=== PATIENT | female | born 1965 | race Caucasian/White ===

== ENCOUNTER → 2016-05-22 | Outpatient (CLI) | payer OTHER ==
[~2016-05-22] MED LIST: (NONE)1 TAB PO; ADVAIR 250-501 EACH INH; ALBUTEROL17 GM INH; ALPRAZOLAM PO; AMOXICILLIN PO; ANUSOL-HC CREAM30 G1 EXT; ATARAX PO; ATIVAN0.5 M1 PO; BENTYL10 MG DOB; BENZONATATE PO; BUSPAR PO; CELEXA; CIPRO250 MG PO; COMBIVENT INH14.7 GM INH; COMBIVENT U/D3 M2 INH; COMBIVENT U/D3 ML INH; COMBIVENT14.7 GM INH; CYMBALTA PO; CYMBALTA30 M1; DICLOFENAC PO; DIFLUNISAL500 MG PO; DOXEPIN PO; ESTRACE2 M1 PO; FLAGYL PO; FLEXERIL PO; FLEXERIL10 MG PO; FLONASE16 GM; GABAPENTIN400 M2 PO; HORMONE PILL; HYDROCODONE-A1 UDTA3 PO; HYDROXYZINE HCL25 M1 PO; HYDROXYZINE PAM25 MG PO; IBUPROFEN M200 M1 PO; IBUPROFEN PO; IBUPROFEN800 MG PO; KEFLEX500 MG PO; KLONOPIN; KLONOPIN PO; LATUDA40 MG PO; LEVAQUIN750 M1 PO; LEVAQUIN750 MG PO; LIDODERM30 EA TOP; LISINOPRIL PO; LORTAB 10-5001 EACH PO; LORTAB 5/500 TA1 TA1 PO; LORTAB 7.5-5001 TAB PO; MEDROL DOSEPAK4 MG; MEDROL PO; MEDROL4 MG/DOSE- PO; MOBIC PO; MOTRIN400 M1 PO; NAPROSYN500 MG PO; NEURONTIN300 MG PO; NEURONTIN600 MG PO; NICOTINE TRANSD21 MG EXT; NICOTINE TRANSD21 MG TOP; NO MEDICATIONS; NORCO 10/325 TA1 TAB; NORCO 5/325 TAB1 TAB PO; OMNICEF300 M1 PO; PERCOCET5/325 PO; PREDNISONE PO; PREDNISONE10 MG/DOSE PO; PREMARIN; PREMARIN PO; PROVENTIL INH0.5 ML INH; ROBAXIN500 MG PO; ROBITUSSIN COU118 ML PO; ROBITUSSIN15 MG/5 ML PO; SEROQUEL; SEROQUEL PO; SEROQUEL25 MG; SEROQUEL400 MG PO; SKELAXIN PO; SYMBICORT INH; TESSALON200 MG PO; TUSSIONEX PENN473 ML PO; ULTRAM PO; VICODIN 5/500 T1 TAB PO; VICODIN PO; VISTARIL; VISTARIL PO; VITAMINS; VOLTAREN75 MG PO; WELLBUTRIN PO; XANAX0.5 M1 PO; ZITHROMAX PO; ZITHROMAX1 G/PKT PO; ZOLOFT; ZOVIRAX800 MG PO; ZUBSOLV 1.4-0.1 EACH SL; ZUBSOLV 5.7-1.1 EACH SL; [UNRECOGNIZED DRUG - REMARK]
--- NOTE | ~2016-05-22 | MY8 ---
[facility] A Service of [facility] & [facility] RADIOLOGY TEXT RESULTS PATIENT: NAE CUELLAR LOCATION: [facility] : 61 UNIT #: [id number] AGE: [address]: Patrick Lazar MD SEX: F ORDER DR: [id number] [facility] [address] [place], [place] [address] [id number] O MR#: [id number] Acc #: [id number] NAME: NAE CUELLAR. : 1965 SEX: F STUDY DATE/TIME: 05/22/2016 11:23 UNIT: [facility] ROOM: STUDY DESCRIPTION: MY Mammogram Dx Dig Rt Attending Physician: Patrick Lazar M.D. Referring Physician: Patrick Lazar M.D. Ordering Physician: Patrick Lazar M.D. Primary Care Physician: Patrick Lazar M.D. MEDICAL IMAGING REPORT This report is preliminary unless electronic signature is present EXAM Additional views right breast and targeted right breast ultrasound 05/22/2016 INDICATION 51-year-old female recalled for an asymmetry in the upper right breast superimposed over the pectoralis muscle. The patient denies a palpable abnormality or change in the right breast. TECHNIQUE True lateral, compression MLO and exaggerated CC lateral views of the right breast were obtained and reviewed with an FDA-approved CAD device. COMPARISON 04/28/2016 and prior outside mammogram performed 05/30/2010. FINDINGS After the mammographic portion of the study, targeted ultrasound was thereafter performed. MAMMOGRAPHIC: With the benefit of the spot compression views, the asymmetry superimposed over the pectoralis muscle does not resolve. On MLO and true lateral views, there is a suggestion of a vague nodular density associated with the asymmetry, measuring up to about 8-9 mm. There is no abnormality on exaggerated CC lateral views. No adenopathy identified. Ultrasound was thereafter performed. ULTRASOUND: The patient was initially scanned independently by the technologist and then rescanned in my presence. I also personally scanned the patient. Limited physical exam (with patient consent) was performed and was negative. In the superior right breast at about 10 o'clock, there is a benign appearing lymph node just anterior to the pectoralis muscle that measures about 10 x 4 mm. [facility] A Service [facility] RADIOLOGY TEXT RESULTS PATIENT: NAE CUELLAR LOCATION: [facility] : 61 UNIT #: [id number] AGE: [address]: Patrick Lazar MD SEX: F ORDER DR: In the 11 o'clock position 11 cm from the nipple intimately associated with the pectoralis muscle, there is a vague area of decreased echogenicity, that is slightly taller than wide measuring about 10 x 9 mm with no internal color-flow but demonstrating some degree of posterior acoustical shadowing. Under real-time surveillance in some respects, this appears to represent breast tissue in the axillary tail. While in others, it is more indeterminate or suspicious. There is no associated palpable abnormality. At this point, given that it is difficult to reproduce with ultrasound, the patient is recommended to undergo further evaluation with 3-D mammography at [facility] utilizing tomographic imaging for further assessment. A repeat ultrasound will likely be necessary at that point if this area can be localized further. Findings and recommendations for additional imaging with 3-D tomographic views have been discussed with the patient and the ordering physician, Dr. Lazar, immediately prior to this dictation. All parties have voiced understanding. The breast career services manager office is closed today and Dr. Lazar has been personally informed by telephone by me of the recommendation for additional imaging and the need for this to be scheduled by his office at [facility] at the earliest convenience. IMPRESSION Additional mammographic views and ultrasound evaluation of the asymmetric density on the patient's recent screening study are inconclusive. There is a benign lymph node in the 10 o'clock posterior right breast and there is an area of dense breast tissue extending into the axillary tail or potentially a subtle shadowing mass. Additional imaging with 3-D tomographic imaging at [facility] and potentially repeat breast ultrasound is recommended for further assessment. See discussion above. The patient and Dr. Lazar, the ordering physician, are both aware of the recommendations for additional imaging. Patients over the age of 40 are entered into a reminder system with target due date for the next mammogram. A result letter will also be sent to the patient. BIRADS: 0 Incomplete: Need additional imaging evaluation and/or prior mammograms for comparison STAT * RESULT Dictated by... William Mallory M.D. THIS IS AN ELECTRONICALLY VERIFIED REPORT William Mallory M.D. at 05/22/2016 4:12 PM [facility] A Service of [facility] & [facility] RADIOLOGY TEXT RESULTS PATIENT: NAE CUELLAR LOCATION: [facility] : 61 UNIT #: [id number] AGE: [address]: Patrick Lazar MD SEX: F ORDER DR: MAYI/cecilia TD: 05/22/2016 12:32 JOB #: [id number] MEDICAL IMAGING REPORT COPY
--- NOTE | ~2016-05-22 | US24 ---
[facility] A Service of [facility] & [facility] RADIOLOGY TEXT RESULTS PATIENT: NAE CUELLAR LOCATION: [facility] : 61 UNIT #: [id number] AGE: [address]: Patrick Lazar MD SEX: F ORDER DR: [id number] [facility] [address] [place], [place] [address] [id number] O MR#: [id number] Acc #: [id number] NAME: NAE CUELLAR. : 1965 SEX: F STUDY DATE/TIME: 05/22/2016 11:42 UNIT: [facility] ROOM: STUDY DESCRIPTION: US Breast Unilateral Attending Physician: Patrick Lazar M.D. Referring Physician: Patrick Lazar M.D. Ordering Physician: Patrick Lazar M.D. Primary Care Physician: Patrick Lazar M.D. MEDICAL IMAGING REPORT This report is preliminary unless electronic signature is present EXAM Targeted ultrasound of the right breast, 05/22/2016 HISTORY FINDINGS Please refer to additional views of the right breast same date. Patients over the age of 40 are entered into a reminder system with target due date for the next mammogram. A result letter will also be sent to the patient. BIRADS 0 Incomplete: Need Additional Imaging Evaluation and/or Prior Mammograms for Comparison STAT * RESULT Dictated by... William Mallory M.D. THIS IS AN ELECTRONICALLY VERIFIED REPORT William Mallory M.D. at 05/22/2016 4:15 PM Tiffany TD: 05/22/2016 12:36 JOB #: [id number] MEDICAL IMAGING REPORT COPY
== END | disposition home or self-care (01) ==
LOC: CMAM 11:01
DX: R92.8 Other abnormal and inconclusive findings on diagnostic imaging of breast (principal); R92.2 Inconclusive mammogram
CPT/HCPCS: 76641; G0206

== ENCOUNTER 2016-06-15 02:50 | Emergency (ER) | payer OTHER | END 2016-06-15 03:02 | disposition home or self-care (01) | LOC: CFTX 02:50 | DX: M25.511 Pain in right shoulder (principal); J44.9 Chronic obstructive pulmonary disease, unspecified; F31.9 Bipolar disorder, unspecified; Z90.49 Acquired absence of other specified parts of digestive tract; Z90.710 Acquired absence of both cervix and uterus; F17.200 Nicotine dependence, unspecified, uncomplicated; Z88.0 Allergy status to penicillin; Z88.2 Allergy status to sulfonamides; Z88.8 Allergy status to other drugs, medicaments and biological substances | CPT/HCPCS: 99282 ==